=== PATIENT | female | born 1945 | race Caucasian/White ===

== ENCOUNTER 2021-08-09 09:55 | Observation (INO) ==
--- NOTE | 2021-07-06 15:58 | PAT Medication Instructions ---
Medication Instructions Date of Service July 06, 2021 Home Medications acetaminophen 500 mg capsule 500 mg PO Q6H PRN calcium carbonate 600 mg calcium (1,500 mg) tablet (Calcium) 1,200 mg PO QAM celecoxib 200 mg capsule (Celebrex) 200 mg PO BID cholecalciferol (vitamin D3) 25 mcg (1,000 unit) tablet (Vitamin D3) 25 mcg PO QAM cyclosporine 0.05 % eye drops in a dropperette (Restasis) 1 drp OPHTHALMIC (EYE) Q12H letrozole 2.5 mg tablet 2.5 mg PO QAM lisinopril 10 mg tablet 10 mg PO QAM meclizine 25 mg tablet 25 mg PO BID PRN methylphenidate HCl 54 mg tablet,extended release 24 hr (Concerta) 54 mg PO QAM omeprazole 20 mg tablet,delayed release 20 mg PO QAM sertraline 50 mg tablet 50 mg PO HS tizanidine 4 mg tablet 4 mg PO HS tolterodine 2 mg capsule,extended release 24 hr (Detrol LA) 2 mg PO QAM vitamin E mixed 1,000 unit capsule 1,000 unit PO QAM zolpidem 10 mg tablet 10 mg PO HS PRN ASK your surgeon for instructions celecoxib 200 mg capsule (Celebrex) 200 mg PO BID ASK your prescriber and surgeon letrozole 2.5 mg tablet 2.5 mg PO QAM STOP taking 2 weeks before surgery vitamin E mixed 1,000 unit capsule 1,000 unit PO QAM DO NOT take the morning of surgery calcium carbonate 600 mg calcium (1,500 mg) tablet (Calcium) 1,200 mg PO QAM cholecalciferol (vitamin D3) 25 mcg (1,000 unit) tablet (Vitamin D3) 25 mcg PO QAM lisinopril 10 mg tablet 10 mg PO QAM meclizine 25 mg tablet 25 mg PO BID PRN(if needed) methylphenidate HCl 54 mg tablet,extended release 24 hr (Concerta) 54 mg PO QAM tolterodine 2 mg capsule,extended release 24 hr (Detrol LA) 2 mg PO QAM Take morning of surgery With a small sip of water, OTHERWISE NOTHING TO EAT OR DRINK AFTER MIDNIGHT: acetaminophen 500 mg capsule 500 mg PO Q6H PRN(okay to take up to 4 hours prior to surgery if needed) cyclosporine 0.05 % eye drops in a dropperette (Restasis) 1 drp OPHTHALMIC (EYE) Q12H omeprazole 20 mg tablet,delayed release 20 mg PO QAM Take evening before surgery acetaminophen 500 mg capsule 500 mg PO Q6H PRN(if needed) cyclosporine 0.05 % eye drops in a dropperette (Restasis) 1 drp OPHTHALMIC (EYE) Q12H meclizine 25 mg tablet 25 mg PO BID PRN(if needed) sertraline 50 mg tablet 50 mg PO HS tizanidine 4 mg tablet 4 mg PO HS zolpidem 10 mg tablet 10 mg PO HS PRN(if needed) Other Notes If you have any questions please call us at [phone] or [phone] or [phone] or [phone]
--- NOTE | 2021-07-07 13:29 | Anesthesiology Consultation ---
Date of Service July 07, 2021 Assessment & Plan (1) Encounter for pre-operative examination: - COVID screening: Per assessment on 07/07: No known COVID-19 positive contacts or current COVID-19 related symptoms. Travel screen negative. Patient vaccinate d. Surgeon arranging preop COVID testing. Awaiting results. - LUE limb restriction s/p mastectomy + LND Chart Review Chart Review: Acceptable Risk for Surgery and Patient seen in Pre Admission Testing Teaching & Discussion Pre-Anesthesia Teaching/Discussion Notes: Instructed NPO after midnight before surgery,except medications with 15 cc of water. Medication instructions provided according to the PAT guidelines. History Surgery Operation Date: 08/09/21 10:30 Proposed Procedures p Right Total Knee Arthroplasty - Mark Bojorquez DO Height/Weight Height: 5 ft 8 in Weight: 112.7 kg Allergies Allergy/AdvReac Type Severity Reaction Status Date / Time No Known Allergies Allergy Verified 07/06/21 14:31 Medications Home Medications Medication Instructions Recorded Confirmed Last Taken acetaminophen 500 mg capsule 500 mg PO Q6H PRN 07/06/21 07/06/21 Unknown calcium carbonate 600 mg calcium 1,200 mg PO QAM 07/06/21 07/06/21 Unknown (1,500 mg) tablet (Calcium) celecoxib 200 mg capsule (Celebrex) 200 mg PO BID 07/06/21 07/06/21 Unknown cholecalciferol (vitamin D3) 25 25 mcg PO QAM 07/06/21 07/06/21 Unknown mcg (1,000 unit) tablet (Vitamin D3) cyclosporine 0.05 % eye drops in a 1 drp OPHTHALMIC (EYE) Q12H 07/06/21 07/06/21 Unknown dropperette (Restasis) letrozole 2.5 mg tablet 2.5 mg PO QAM 07/06/21 07/06/21 Unknown lisinopril 10 mg tablet 10 mg PO QAM 07/06/21 07/06/21 Unknown meclizine 25 mg tablet 25 mg PO BID PRN 07/06/21 07/06/21 Unknown methylphenidate HCl 54 mg 54 mg PO QAM 07/06/21 07/06/21 Unknown tablet,extended release 24 hr (Concerta) omeprazole 20 mg tablet,delayed 20 mg PO QAM 07/06/21 07/06/21 Unknown release sertraline 50 mg tablet 50 mg PO HS 07/06/21 07/06/21 Unknown tizanidine 4 mg tablet 4 mg PO HS 07/06/21 07/06/21 Unknown tolterodine 2 mg capsule,extended 2 mg PO QAM 07/06/21 07/06/21 Unknown release 24 hr (Detrol LA) vitamin E mixed 1,000 unit capsule 1,000 unit PO QAM 07/06/21 07/06/21 Unknown zolpidem 10 mg tablet 10 mg PO HS PRN 07/06/21 07/06/21 Unknown Past Medical History Medical History (Updated 07/07/21 @ 13:49 by Thea Hernandez) Anxiety Breast cancer Dx 2019 s/p b/l mastectomy LUE restriction History of COVID-19 11/2020 > incidental finding, remained asymptomatic Hypertension Obesity Exercise / Class Metabolic Activity II 4-5 Yardwork/Stairs/Walk up hill Past Surgical History Surgical History H/O esophagogastroduodenoscopy Nausea and vomiting after administration of anesthetic agent S/P colonoscopy S/P hysterectomy S/P mastectomy, bilateral S/P sinus surgery 35 YRS AGO S/P trigger finger release Past Anesthesia History No Hx of Anesthesia Complications (except PONV) and No Family Hx of Anesthesia Complications History of PONV History of PONV and Hx of Motion Sickness (+ vertigo) Social History Smoking Status: Never smoker Do You Dip or Chew Tobacco: No Hx Alcohol Use: No Hx Substance Use: No substance use type: does not use Review of Systems Patient denies chest pain, shortness of breath, dyspnea on exertion, fever, chills, cough, wheezing, palpitations. Physical Exam Vital Signs VITALS BP 120/75 P 93 TEMP 98.6 SP02 94%RA RESP 16 PHYSICAL Full cervical extension range of motion. Full TMJ range of motion. TMD 3.5 finger breaths Mallampati Score 2 Dentition: full dentures upper/lower Lungs: clear throughout to auscultation Cardiac: regular rate and rhythm, no murmurs noted Spine: normal Carotid arteries: negative bruit Extremities: no edema Lab Results Anesthesia Preop Results Results Anesthesia Widget: WBC 8.69 K/uL (4.8-10.8) 07/07/21 Hgb 13.0 g/dL (12.0-16.0) 07/07/21 Hct 39.5 % (37-47) 07/07/21 Plt 282 K/uL (130-400) 07/07/21 Na 141 mmol/L (136-145) 07/07/21 K 3.9 mmol/L (3.5-5.1) 07/07/21 Cl 106 mmol/L (98-107) 07/07/21 CO2 28 mmol/L (21-32) 07/07/21 BUN 19 mg/dl (6-23) 07/07/21 Creat 0.95 mg/dl (0.6-1.2) 07/07/21 Glucose Level 115 mg/dl (70-99(Fasting)) H 07/07/21 PT 10.7 Seconds (9.0-12.0) 07/07/21 PTT 24.7 Seconds (21.0-31.0) 07/07/21 INR 1.0 (0.9-1.1) 07/07/21 HA1c 6.0 % (4.5-5.6) H 07/07/21 Urine Color Yellow 07/07/21 Urine Appearance Clear (Clear) 07/07/21 Urine pH 5.0 (4.5-7.5) 07/07/21 Urine Specific [place] 1.021 (1.000-1.030) 07/07/21 Urine Protein Negative (Negative) 07/07/21 Urine Glucose (UA) Negative (Negative) 07/07/21 Urine Ketones Trace (Negative) H 07/07/21 Urine Blood Negative (Negative) 07/07/21 Urine Nitrite Negative (Negative) 07/07/21 Urine Bilirubin Negative (Negative) 07/07/21 Urine Urobilinogen Negative (Negative) 07/07/21 Urine Leukocyte Esterase Trace (Negative) H 07/07/21 Urine WBC (Auto) 1-5 /hpf (0-5) 07/07/21 Urine RBC (Auto) 0-4 /hpf (0-4) 07/07/21 Urine Hyaline Casts (Auto) 1-5 /lpf (0-5) 07/07/21 Urine Epithelial Cells (Auto) 20-30 /lpf (0-5) H 07/07/21 Urine Bacteria (Auto) Negative (Negative) 07/07/21 Blood Type A Positive 07/07/21 Antibody Screen NEGATIVE 07/07/21 Testing Electrocardiogram Date: 07/07/21 SR with marked sinus arrhythmia at 85bpm. Otherwise "normal" ECG. Chest X-Ray Date: 07/07/21 FINDINGS: No pneumothorax. No pleural effusions. There is a tortuous thoracic aorta. The heart is normal in size. The lungs are clear. Prior cholecystectomy. There are surgical clips within the left axilla. IMPRESSION: No acute process.
--- NOTE | 2021-07-14 08:42 | History & Physical Report ---
Date of Service July 14, 2021 date of surgery: 08/09/21 Procedure: Right Total Knee Arthroplasty Surgeon: Mark Bojorquez Assessment & Plan (1) Arthritis of right knee: Plan: Further care discussed with patient and at this point in time has failed conservative measures and would like to proceed with a right total knee replacement. Plan on discharge will be home with home health physical therapy. DVT prophylaxiswith TEDs, SCDs and will also place on aspirin 81 mg p.o. b.i.d. for a month postop. Patient will have follow up appointment in our office two weeks post op for staple/suture removal and re-evaluation. Patient otherwise has no other questions or concerns. The risks and benefits have been discussed including, but not limited to, risk of infection, nerve injury, stiffness, loss of motion, failure to improve, etc. Reasonable outcomes and options of treatment were discussed. An explanation of appropriate alternatives to the procedure that may be advantageous were discussed and their risks and benefits, as well as the risks and benefits of not proceeding with treatment. I offered to answer any additional inquiries concerning the treatment involved. All the patient's questions were answered. The patient is agreeable, understanding of the treatment plan and alternatives, and wishes to proceed with the treatment plan. History of Present Illness Chief Complaint: Right knee pain Primary Care Provider: Vamsi Gama DO Dee is a 76 year old who complains of right knee pain, presents for pre op prior to right total knee replacement. Her symptoms are reported as being moderate and occur daily. Aggravating factors include daily activities, weight bearing, walking, standing and squatting. The client states the symptoms are chronic. Patient had xrays done at [facility] and has failed Zilretta injections, RFA, and cortisone injection. Patient has tried and failed Celebrex and other NSAIDS. Allergies Allergy/AdvReac Type Severity Reaction Status Date / Time No Known Allergies Allergy Verified 07/06/21 14:31 Home Medications Medication Instructions Recorded Confirmed Type acetaminophen 500 mg capsule 500 mg PO Q6H PRN 07/06/21 07/06/21 History calcium carbonate 600 mg calcium 1,200 mg PO QAM 07/06/21 07/06/21 History (1,500 mg) tablet (Calcium) celecoxib 200 mg capsule (Celebrex) 200 mg PO BID 07/06/21 07/06/21 History cholecalciferol (vitamin D3) 25 25 mcg PO QAM 07/06/21 07/06/21 History mcg (1,000 unit) tablet (Vitamin D3) cyclosporine 0.05 % eye drops in a 1 drp OPHTHALMIC (EYE) Q12H 07/06/21 07/06/21 History dropperette (Restasis) letrozole 2.5 mg tablet 2.5 mg PO QAM 07/06/21 07/06/21 History lisinopril 10 mg tablet 10 mg PO QAM 07/06/21 07/06/21 History meclizine 25 mg tablet 25 mg PO BID PRN 07/06/21 07/06/21 History methylphenidate HCl 54 mg 54 mg PO QAM 07/06/21 07/06/21 History tablet,extended release 24 hr (Concerta) omeprazole 20 mg tablet,delayed 20 mg PO QAM 07/06/21 07/06/21 History release sertraline 50 mg tablet 50 mg PO HS 07/06/21 07/06/21 History tizanidine 4 mg tablet 4 mg PO HS 07/06/21 07/06/21 History tolterodine 2 mg capsule,extended 2 mg PO QAM 07/06/21 07/06/21 History release 24 hr (Detrol LA) vitamin E mixed 1,000 unit capsule 1,000 unit PO QAM 07/06/21 07/06/21 History zolpidem 10 mg tablet 10 mg PO HS PRN 07/06/21 07/06/21 History Past Med/Surg History Medical History Anxiety Breast cancer Dx 2019 s/p b/l mastectomy LUE restriction History of COVID-19 11/2020 > incidental finding, remained asymptomatic Hypertension Obesity Surgical History H/O esophagogastroduodenoscopy Nausea and vomiting after administration of anesthetic agent S/P colonoscopy S/P hysterectomy S/P mastectomy, bilateral S/P sinus surgery 35 YRS AGO S/P trigger finger release Social History Smoking Status: Never smoker Second Hand Exposure: No; Hx Alcohol Use: No Hx Substance Use: No Preferred Language: Congolese Communication Ability: Effective Electorate Officer Required: No Beliefs That Will Affect Care: None Current Living Situation: Spouse Feels Safe at Home: Yes Assistive Devices: Denture - Upper, Denture - Lower and Glasses Review of Systems Review of Systems: All systems reviewed & are unremarkable except as noted in HPI & below Constitutional: no fever, no chills and no sweats Respiratory: no cough and no dyspnea Cardiovascular: no chest pain, no dyspnea and no orthopnea Gastrointestinal: no abdominal pain, no nausea and no vomiting Musculoskeletal: as per Subjective / HPI Physical Exam Physical Exam: HT: 5ft 8in WT: 112.7kg Constitutional: WD/WN, vitals as above no acute distress Respiratory: normal respiratory effort, lungs clear to auscultation no r espiratory distress, no labored breathing and does not use accessory muscles Cardiovascular: RRR, no murmur, no edema Gastrointestinal (Abdomen): normal bowel sounds, soft, nontender, no hepatosplenomegaly Musculoskeletal: Knee: + knee abnormal to inspection (Right Knee- ), + effusion (+1 effusion), + limited ROM of knee (ROM 0/3/110), + knee ROM with crepitation, + joint line tenderness (medial joint line) and + Nas's sign positive; no deformity, no skin erythema, no ecchymosis, no valgus laxity, no varus laxity, anterior drawer test negative, Caleb's sign negative and pivot shift test negative Results & Data Results & Data ([facility]) Diagnostic Findings Right Knee X-ray: Right knee series showing advanced degenerative changes to the right knee, narrowing of the medial compartment and patello-femoral joint with patellar spurring noted, findings showing joint space narrowing of the medial compartment and patello-femoral joint, osteophyte formation and subchondral sclerosis noted. overall varus alignment. no acute bony pathology noted.
[~2021-08-09 09:55] MED LIST: ACETAMINOPHEN 500 MG TAB PO SCH; BUPIVACAINE 0.25% 30 ML VIAL ONE; BUPIVACAINE 0.5 % 5 MG/1 ML PF 10ML VIAL ONE; CeleBREX 200 MG CAP PO SCH; DEXAMETHASONE SOD INJ 4 MG/ML VIAL ONE; EPINEPHrine INJ 1 MG/ML AMP ONE; FAMOTIDINE 20 MG TAB PO SCH; GABAPENTIN 300 MG CAP PO SCH; LR 500ML BOLUS, THEN 15ML/HR IV SCH; METOCLOPRAMIDE HCL 10 MG TABLET PO SCH; ROPIVACAINE 0.5% HCL/PF 150 MG, BUPIVACAINE 0.75% MPF 20 ML, EPINEPHrine 30MG/30ML (OR ... INSTIL SCH; TRANEXAMIC ACID 1,000 MG **IV Intra-op IV SCH; TRANEXAMIC ACID 1,000 MG **IV Pre-op IV SCH; ceFAZolin 2000MG 2,000 MG/15 ML SYR IV SCH; dexAMETHasone 4 MG TAB PO SCH
--- NOTE | 2021-08-09 11:14 | History & Physical Bridge Note ---
Date of Service August 09, 2021 History & Physical Bridge Note I have examined the patient, reviewed the History & Physical and in the interval since the performance of the History & Physical I have noted the following changes of clinical significance: no changes noted
[2021-08-09] MEDS ORDERED: MIDAZOLAM HCL 1 MG/ML 2ML VIAL ONE (11:52)
[2021-08-09] MEDS ORDERED: fentaNYL citrate 100 MCG/2 ML VIAL ONE (11:53)
[2021-08-09] MEDS ORDERED: ORTHO JOINT ANESTHETIC ONE (13:52)
[2021-08-09] MEDS ORDERED: ONDANSETRON INJ 2 MG/ML 2 ML VIAL ONE (14:06)
[2021-08-09] MEDS ORDERED: PROPOFOL IV EMULSION 10 MG/ML 20 ML VIAL IV ONE (14:06)
--- NOTE | 2021-08-09 15:07 | Operative Report ---
Post Operative Report Pre & Post Diagnosis Operation Date: 08/09/21 12:50 Pre-Op Diagnosis: Osteoarthritis Knee Right Post-Op Diagnosis: Osteoarthritis Knee Right I identified the patient and participated in the time-out.: Yes Procedure Operation Date: 08/09/21 12:50 Actual Procedures p Right Total Knee Arthroplasty(Right) utilizing [email or web address] journey 2 patient matched total knee arthroplasty size femur 6 tibia 5 polytwelve patella 32 oval Mark Bojorquez DO Surgeon Mark Bojorquez DO Client Service Manager Rayshawn HERRERA Estimated Blood Loss 5 Findings Consistent with Post-Op Diagnosis Patient presents with severe end-stage tricompartmental degenerative joint disease right knee no response to conservative management patient has eburnated [id number] marginal osteophyte subchondral cystic changes subchondral sclerosis Specimens Bone and cartilage Drains Medium bore Hemovac Anesthesia Type MAC Spinal Regional Complications none Disposition Accompanied Patient To Recovery: No Disposition: Recovery Room Indications Patient presents with severe end-stage DJD right knee after failed attempted conservative management clinic physical therapy anti-inflammatories relative rest activity modification corticosteroid injection viscosupplementation Description of Procedure After proper prepping and draping of the Right lower extremity anterior midline incision was made over the region of the extensor extensor mechanism after meticulous hemostasis was obtained and maintained in subcutaneous tissues a medial parapatellar incision was made The patella was subluxed lateralward the medial lateral gutter were cleaned from any hypertrophic synovitis and scar tissue of the distal femoral block was placed and the distal femoral osteotomy cut was made subsequently the chamfers anterior and posterior osteotomy cuts were made utilizing the 4-in-1 block the tibia was subsequently subluxed anteriorward medial and ateral meniscal remnants were excised in their entirety remnants of the anterior and posterior cruciate ligaments were excised in their entirety excellent exposure of the proximal tibia was obtained the tibial osteotomy guide was placed on the proximal tibial osteotomy cut was made once again the knee was irrigated with copious amounts of sterile saline solution the patella was subsequently everted lateralward thickened scar tissue around the patella was removed the patella was subsequently cut utilizing a freehand technique and was drilled prepared for final preparation and placement of patella socially flexion-extension gaps were checked and the equal and symmetric trials were placed to the appropriate femoral and tibial trials with poly-spacer being placed for equal flexion and extension gaps and full range of motion including extension to 0 and flexion to 140 the trial components after having been taken to recovery range of motion was subsequently removed meticulous hemostasis was obtained and maintained subsequently a knee block injection of joint cocktail including ropivacaine 0.5% 150 mg. Bupivacaine 0.5% epinephrine 1-200,030 mL's toradol 30 mg dexamethasone 4 mg ketamine 10 mg clonidine 100 micrograms normal saline solution 30 mg was infiltrated into the soft tissues of the posterior knee medial lateral gutters and periosteal synovium special attention was paid to protect neurovascular structures at all times subsequently trial components having been removed the knee was irrigated with sterile saline solution. debris was removed the proximal tibia was subsequently prepared and was made ready for the placement of the tibial component tibial component was also cemented and tamped into position the femoral component was subsequently placed and cemented in the position the patellar component was subsequently cemented in position because hemostasis once again obtained and maintained wound having been thoroughly irrigated with debridement and debridement lavage was performed as well as a medial parapatellar incision closed with #1 Vicryl in interrupted fashion subcutaneous was closed with #2 Vicryl skin was closed with skin clips. PA-C was necessary for prepping and drapping as well as wound closure of deep fascia Sub cutaneous tissue and skin and was necessary for the case. A sterile compressive dressing was placed patient was taken to recovery in stable condition of report dictated by [place] I attest to the content of the Intraoperative Record and any orders documented therein. Any exceptions are noted below.Due to the complex nature of the procedure, the entire surgery was performed with the operational assistance of Rayshawn HERRERA. The assistant restaurant general manager, under direct supervision, was involved in the actual performance of all aspects of the surgical procedure including hemostasis, tissue retraction and incision, instrument management, patient positioning, and wound closure. I attest to the content of the Intraoperative Record and any orders documented therein. Any exceptions are noted below.
[2021-08-09] MEDS ORDERED: ATROPINE SULFATE 0.1 MG/ML 10ML SYR IV PRN (15:33)
[2021-08-09] MEDS ORDERED: ONDANSETRON INJ 2 MG/ML 2 ML VIAL IV PRN ×2 (15:33→17:12)
[2021-08-09] MEDS ORDERED: fentaNYL citrate 100 MCG/2 ML VIAL IV PRN (15:33)
[2021-08-09] MEDS ORDERED: ePHEDrine sulfate 50 MG/ML AMP IV PRN (15:33)
--- NOTE | 2021-08-09 16:59 | XRay Report ---
XR knee RT 1 or 2V routine HISTORY: 76 years-old Female Surgical Post Op right knee total joint arthroplasty COMPARISON: None TECHNIQUE: 2 views of the right knee FINDINGS: Total joint arthroplasty with patellar resurfacing. Anterior midline skin conrad are noted along wit h expected postoperative soft tissue swelling and deep tissue air with surgical drainage catheter. No acute fracture or unexpected opaque foreign body. IMPRESSION: Total joint arthroplasty with expected postoperative changes. ACT 112: Negative or not required by law. The above report was generated using voice recognition software. It may contain grammatical, syntax o r spelling errors. Electronically signed by: Urbano Holt M.D. 08/09/2021 4:58 PM
[2021-08-09] MEDS ORDERED: NALOXONE HCL 0.4 MG/1 ML VIAL/CARP IV PRN (17:12)
[2021-08-09] MEDS ORDERED: MAGNESIUM HYDROXIDE SUSP 30 ML UDC PO PRN (17:12)
[2021-08-09] MEDS ORDERED: HYDROmorphone INJ 0.5 MG/0.5 ML SYR IV PRN (17:12)
[2021-08-09] MEDS ORDERED: ZOLPIDEM TARTRATE 10 MG TAB PO PRN (17:12)
[2021-08-09] MEDS ORDERED: bisacodyL 10 MG SUPP PR PRN (17:12)
[2021-08-09] MEDS ORDERED: MECLIZINE HCL 25 MG TAB PO PRN (17:12)
[2021-08-09] MEDS: SODIUM CHLORIDE 0.9% 1000ML 1,000 ML IV SCH (17:45)
--- NOTE | 2021-08-09 18:15 | Anesthesiology Progress Note ---
Date of Service August 09, 2021 Anesthesia Post Procedure Vital Signs Vital Signs: Temp Pulse Pulse Resp BP Pulse Ox 08/09/21 18:04 36.9 C 79 16 135/69 92 08/09/21 17:15 36.7 C 73 18 146/70 H 93 08/09/21 16:45 77 20 140/72 97 08/09/21 16:30 72 16 145/81 H 96 08/09/21 16:20 36.9 C 75 18 148/85 H 95 08/09/21 16:10 78 19 141/68 H 96 08/09/21 16:00 75 18 154/68 H 96 08/09/21 15:52 36.7 C 82 18 143/66 H 95 08/09/21 10:34 36.8 C 90 20 117/98 94 Pain Intensity Right Knee: Pain Intensity: 3 Transfer of Care Handoff Completed per policy Notes Mental Status: alert / awake / arousable Patient Amnestic to Procedure: Yes Nausea / Vomiting: adequately controlled Pain: adequately controlled Airway Patency, RR, SpO2: stable & adequate BP & HR: stable & adequate Hydration State: stable & adequate Neuraxial Anesthesia: was administered and sensory block is resolving Anesthetic Complications: no major complications apparent and Pt Satisfied with anesthetic care
[2021-08-09] MEDS: oxyCODONE HCL IR 5 MG TAB (IMMEDIATE RELEASE) PO PRN (18:28)
[2021-08-09] MEDS: ASPIRIN 81 MG ECTAB PO SCH (20:53)
[2021-08-09] MEDS: CeleBREX 200 MG CAP PO SCH (20:53)
[2021-08-09] MEDS: DOCUSATE SODIUM 100 MG CAP PO SCH (20:54)
[2021-08-09] MEDS ORDERED: tiZANidine HCL 4 MG TABLET PO SCH (21:00)
[2021-08-09] MEDS ORDERED: SENNA 8.6 MG TAB PO SCH (21:00)
[2021-08-09] MEDS ORDERED: SERTRALINE HCL 50 MG TABLET PO SCH (21:00)
[2021-08-09] MEDS: ACETAMINOPHEN 500 MG TAB PO SCH (21:53)
[2021-08-09] MEDS: ceFAZolin 2000MG 2,000 MG/15 ML SYR IV SCH (21:54)
[2021-08-10] MEDS: SODIUM CHLORIDE 0.9% 1000ML 1,000 ML IV SCH (03:18)
[2021-08-10] MEDS: oxyCODONE HCL IR 5 MG TAB (IMMEDIATE RELEASE) PO PRN ×3 (03:40→13:00)
[2021-08-10] MEDS: ceFAZolin 2000MG 2,000 MG/15 ML SYR IV SCH (05:37)
[2021-08-10] MEDS: ACETAMINOPHEN 500 MG TAB PO SCH (05:41)
[2021-08-10 06:39] LABS: Hematocrit (blood only) 34.9 % (37-47); Hemoglobin 11.4 g/dL (12.0-16.0); Mean Corpuscular Hemoglobin 29.5 pg (25-34); Mean Corpuscular Hgb Conc 32.7 g/dL (32-36); Mean Corpuscular Volume 90.2 fL (80-100); Mean Platelet Volume 10.5 fL (7.4-10.4); Platelet Count 247 K/uL (130-400); RDW Coefficient of Variation 13.1 % (11.5-14.5); RDW Standard Deviation 42.8 fL (36.4-46.3); Red Blood Count 3.87 M/uL (4.2-5.4); White Blood Count 14.99 K/uL (4.8-10.8)
[2021-08-10 07:09] LABS: BUN Creatinine Ratio 21.8 (10-20); Calcium 8.3 mg/dl (8.5-10.1); Creatinine Clr Calc Pharmacy 63.2 ml/min; Est GFR (African American) 63.1 ml/min; Est GFR (Non-African American) 54.4 ml/min; Potassium 4.2 mmol/L (3.5-5.1)
[2021-08-10] MEDS: CeleBREX 200 MG CAP PO SCH (07:10)
[2021-08-10] MEDS: ASPIRIN 81 MG ECTAB PO SCH (07:10)
[2021-08-10] MEDS: DOCUSATE SODIUM 100 MG CAP PO SCH (07:11)
--- NOTE | 2021-08-10 08:34 | Orthopedic Progress Note ---
Date of Service August 10, 2021 Assessment & Plan (1) Arthritis of right knee: Plan: Postop day 1 status post right total knee arthroplasty. Resolving foot drop likely secondary from intraoperative injection. Watch for now. PT/OT protocols. Weightbearing as tolerated. DVT prophylaxis-aspirin p.o. twice daily, SCDs, CONSUELO brown. Pain management as written. DC planning-patient is hoping for home health services upon discharge. We will recheck her later today to see how she is progressing. Possible discharge to home today. Admission and Anticipated Discharge Date Admission Date: August 09, 2021 Subjective Postop day 1 Patient lying in bed awake and alert. Pain appears controlled. She states that her operative foot feels weak. We discussed that it was likely secondary to her nerve blocks and injections done at the time of surgery. No other complaints at this time. Denies shortness of breath, chest pain, lightheadedness. Physical Exam Physical Exam: Dressings are clean, dry, and intact. Calves are soft and nontender. She has some mild numbness on the top of her foot. She is able to dorsiflex the foot at this time and her great toe but is on the weaker side compared to the left. She has good plantar flexion. Toes are mobile. VAC drainage was 100 mL from the previous shift. Results & Data ([facility]) Vital Signs (Past 12 Hours) Vital Signs Temp Pulse Resp BP Pulse Ox 08/10/21 07:02 36.8 C 69 16 122/76 94 08/10/21 03:35 36.6 C 66 18 111/69 96 08/09/21 23:08 36.6 C 71 18 105/63 96 Laboratory Results Laboratory Results WBC 14.99 K/uL (4.8-10.8) H 08/10/21 06:16 RBC 3.87 M/uL (4.2-5.4) L 08/10/21 06:16 Hgb 11.4 g/dL (12.0-16.0) L 08/10/21 06:16 Hct 34.9 % (37-47) L 08/10/21 06:16 MCV 90.2 fL (80-100) 08/10/21 06:16 MCH 29.5 pg (25-34) 08/10/21 06:16 MCHC 32.7 g/dL (32-36) 08/10/21 06:16 RDW Std Deviation 42.8 fL (36.4-46.3) 08/10/21 06:16 RDW Coeff of Kirsten 13.1 % (11.5-14.5) 08/10/21 06:16 Plt Count 247 K/uL (130-400) 08/10/21 06:16 MPV 10.5 fL (7.4-10.4) H 08/10/21 06:16 Sodium 138 mmol/L (136-145) 08/10/21 06:16 Potassium 4.2 mmol/L (3.5-5.1) 08/10/21 06:16 Chloride 108 mmol/L (98-107) H 08/10/21 06:16 Carbon Dioxide 24 mmol/L (21-32) 08/10/21 06:16 Anion Gap 6 (3-11) 08/10/21 06:16 BUN 22 mg/dl (6-23) 08/10/21 06:16 Creatinine 1.01 mg/dl (0.6-1.2) 08/10/21 06:16 Est Cr Clr Drug Dosing 63.2 ml/min 08/10/21 06:16 Est GFR ( Amer) 63.1 ml/min 08/10/21 06:16 Est GFR (Non-Af Amer) 54.4 ml/min 08/10/21 06:16 BUN/Creatinine Ratio 21.8 (10-20) H 08/10/21 06:16 Glucose 154 mg/dl (70-99(Fasting)) H 08/10/21 06:16 Calcium 8.3 mg/dl (8.5-10.1) L 08/10/21 06:16 SARS-CoV-2, RNA, NAAT NEGATIVE (NEGATIVE) 08/09/21 10:16 Impressions Knee X-Ray 08/09/21 16:06 XR knee RT 1 or 2V routine HISTORY: 76 years-old Female Surgical Post Op right knee total joint art hroplasty COMPARISON: None TECHNIQUE: 2 views of the right knee FINDINGS: Total joint arthroplasty with patellar resurfacing. Anterior midline skin conrad are noted along with expected postoperative soft tissue swelling and deep tissue air with surgical drainage catheter. No acute fracture or unexpected opaque foreign body. IMPRESSION: Total joint arthroplasty with expected postoperative changes. ACT 112: Negative or not required by law. The above report was generated using voice recognition software. It may contain grammatical, syntax or spelling errors. Electronically signed by: Urbano Holt M.D. 08/09/2021 4:58 PM
[2021-08-10] MEDS ORDERED: TOLTERODINE TARTRATE LA 2 MG CAPCR PO SCH (09:00)
[2021-08-10] MEDS ORDERED: MULTIVITAMIN TAB PO SCH (09:00)
[2021-08-10] MEDS ORDERED: CALCIUM CARBONATE 1250MG TAB PO SCH (09:00)
[2021-08-10] MEDS ORDERED: LETROZOLE 2.5 MG TAB PO SCH (09:00)
[2021-08-10] MEDS ORDERED: PANTOprazole 40 MG TAB PO SCH (09:00)
[2021-08-10] MEDS ORDERED: CHOLECALCIFEROL 1,000 UNITS 25 MCG TAB PO SCH (09:00)
[2021-08-10] MEDS ORDERED: lisinopril 10 MG TAB PO SCH (09:00)
--- NOTE | 2021-08-15 10:14 | Discharge Summary ---
Date of Service August 15, 2021 Admission HPI Per Admitting Provider Maci is a 76 year old who complains of right knee pain, presents for pre op prior to right total knee replacement. Her symptoms are reported as being moderate and occur daily. Aggravating factors include daily activities, weight bearing, walking, standing and squatting. The client states the symptoms are chronic. Patient had xrays done at [facility] and has failed Zilretta injections, RFA, and cortisone injection. Patient has tried and failed Celebrex and other NSAIDS. Admission Exam Per Admitting Provider Physical Exam: HT: 5ft 8in WT: 112.7kg Constitutional: WD/WN, vitals as above no acute distress Respiratory: normal respiratory effort, lungs clear to auscultation no respiratory distress, no labored breathing and does not use accessory muscles Cardiovascular: RRR, no murmur, no edema Gastrointestinal (Abdomen): normal bowel sounds, soft, nontender, no hepatosplenomegaly Musculoskeletal: Knee: + knee abnormal to inspection (Right Knee- ), + effusion (+1 effusion), + limited ROM of knee (ROM 0/3/110), + knee ROM with crepitation, + joint line tenderness (medial joint line) and + Nas's sign positive; no deformity, no skin erythema, no ecchymosis, no valgus laxity, no varus laxity, anterior drawer test negative, Caleb's sign negative and pivot shift test negative Principal Diagnosis Right Knee Osteoarthritis Discharge Data Allergies Allergy/AdvReac Type Severity Reaction Status Date / Time benzocaine Allergy Intermediate cold sore Verified 08/09/21 10:30 [From Campho-Phenique] breakout camphor Allergy Intermediate cold sore Verified 08/09/21 10:30 [From Campho-Phenique] breakout menthol Allergy Intermediate cold sore Verified 08/09/21 10:30 [From Campho-Phenique] breakout petrolatum,white Allergy Intermediate cold sore Verified 08/09/21 10:30 [From Campho-Phenique] breakout phenol [From Campho-Phenique] Allergy Intermediate cold sore Verified 08/09/21 10:30 breakout phenol liquid Allergy Intermediate cold sore Verified 08/09/21 10:30 [From Campho-Phenique] breakout pramoxine Allergy Intermediate cold sore Verified 08/09/21 10:30 [From [facility]] breakout Procedures Performed Operation Date: 08/09/21 12:50 Actual Procedures p Right Total Knee Arthroplasty(Right) - Mark Bojorquez DO Ordered Studies 08/09/21 05:00 US - OR guided needle placemen Routine Hospital Course (1) Arthritis of right knee: [facility], [id number] Orthopedic Progress Note Signed Patient:MACI SEGOVIA Admit Date:08/09/21 MR#:[id number] Att Phy:Mark Bojorquez D.O. Acct ID:[id number] Joselin Phy:Vamsi Gama DO Date:1945 Fam Phy: Age:76 Location: Sex:F Room/Bed:E304-1 cc: ~ *NOTICE TO RECEIVING GREEN PARTY/AGENCY This information is strictly Confidential and protected under [place] law. [place] law prohibits you from making any further disclosure of this information unless further disclosure is expressly permitted by the written consent of the person to whom it pertains or is authorized by law. A general authorization for the release of medical or other information is not sufficient for this purpose. Hospital accepts no responsibility if the information is made available to any other person, INCLUDING THE PATIENT. Date of Service August 10, 2021 Assessment & Plan (1) Arthritis of right knee: Plan: Postop day 1 status post right total knee arthroplasty. Resolving foot drop likely secondary from intraoperative injection. Watch for now. PT/OT protocols. Weightbearing as tolerated. DVT prophylaxis-aspirin p.o. twice daily, SCDs, CONSUELO brown. Pain management as written. DC planning-patient is hoping for home health services upon discharge. We will recheck her later today to see how she is progressing. Possible discharge to home today. Admission and Anticipated Discharge Date Admission Date: August 09, 2021 Subjective Postop day 1 Patient lying in bed awake and alert. Pain appears controlled. She states that her operative foot feels weak. We discussed that it was likely secondary to her nerve blocks and injections done at the time of surgery. No other complaints at this time. Denies shortness of breath, chest pain, lightheadedness. Physical Exam Physical Exam: Dressings are clean, dry, and intact. Calves are soft and nontender. She has some mild numbness on the top of her foot. She is able to dorsiflex the foot at this time and her great toe but is on the weaker side compared to the left. She has good plantar flexion. Toes are mobile. VAC drainage was 100 mL from the previous shift. Results & Data ([facility]) Vital Signs (Past 12 Hours) Vital Signs Temp Pulse Resp BP Pulse Ox 08/10/21 07:02 36.8 C 69 16 122/76 94 08/10/21 03:35 36.6 C 66 18 111/69 96 08/09/21 23:08 36.6 C 71 18 105/63 96 Laboratory Results Laboratory Results WBC 14.99 K/uL (4.8-10.8) H 08/10/21 06:16 RBC 3.87 M/uL (4.2-5.4) L 08/10/21 06:16 Hgb 11.4 g/dL (12.0-16.0) L 08/10/21 06:16 Hct 34.9 % (37-47) L 08/10/21 06:16 MCV 90.2 fL (80-100) 08/10/21 06:16 MCH 29.5 pg (25-34) 08/10/21 06:16 MCHC 32.7 g/dL (32-36) 08/10/21 06:16 RDW Std Deviation 42.8 fL (36.4-46.3) 08/10/21 06:16 RDW Coeff of Kirsten 13.1 % (11.5-14.5) 08/10/21 06:16 Plt Count 247 K/uL (130-400) 08/10/21 06:16 MPV 10.5 fL (7.4-10.4) H 08/10/21 06:16 Sodium 138 mmol/L (136-145) 08/10/21 06:16 Potassium 4.2 mmol/L (3.5-5.1) 08/10/21 06:16 Chloride 108 mmol/L (98-107) H 08/10/21 06:16 Carbon Dioxide 24 mmol/L (21-32) 08/10/21 06:16 Anion Gap 6 (3-11) 08/10/21 06:16 BUN 22 mg/dl (6-23) 08/10/21 06:16 Creatinine 1.01 mg/dl (0.6-1.2) 08/10/21 06:16 Est Cr Clr Drug Dosing 63.2 ml/min 08/10/21 06:16 Est GFR ( Amer) 63.1 ml/min 08/10/21 06:16 Est GFR (Non-Af Amer) 54.4 ml/min 08/10/21 06:16 BUN/Creatinine Ratio 21.8 (10-20) H 08/10/21 06:16 Glucose 154 mg/dl (70-99(Fasting)) H 08/10/21 06:16 Calcium 8.3 mg/dl (8.5-10.1) L 08/10/21 06:16 SARS-CoV-2, RNA, NAAT NEGATIVE (NEGATIVE) 08/09/21 10:16 Impressions Knee X-Ray 08/09/21 16:06 XR knee RT 1 or 2V routine HISTORY: 76 years-old Female Surgical Post Op right knee total joint arthroplasty COMPARISON: None TECHNIQUE: 2 views of the right knee FINDINGS: Total joint arthroplasty with patellar resurfacing. Anterior midline skin conrad are noted along with expected postoperative soft tissue swelling and deep tissue air with surgical drainage catheter. No acute fracture or unexpected opaque foreign body. IMPRESSION: Total joint arthroplasty with expected postoperative changes. Total Time Total Time Spent Total Time Spent (In Minutes): 10 Discharge Plan Discharge Items Patient Disposition: Home - Home Health Services Reason For Visit: Osteoarthritis Knee Right Discharge Diagnosis: Osteoarthritis Right Knee Activity: Per Instructions section Weightbearing: Right weightbearing Weightbearing Comment: as tolerated Non-emergency contact: Surgeon Call non-emergency contact if: your pain is not controlled, your temperature is above 101.5, your wound has increased redness and your wound has increased drainage Follow-up/Referrals: Mark Bojorquez DO [Surgeon] - (Please follow up with Dr Bojorquez or his PA Tony Chatterjee in 2 weeks for your first postoperative visit. Please call for appointment if one has not been made for you. ) Vamsi Gama DO [Primary Care Provider] - Diet: Regular Addtl Attending Provider Instructions: ACTIVITY RECOMMENDATIONS: SELF CARE INSTRUCTIONS AFTER TOTAL KNEE REPLACEMENT A. You may need to continue a physical therapy program after discharge from the hospital. There are several options available to you. Your doctor will assist you in selecting the best one for you. 1. An out-patient facility 2 to 3 times a week for therapy or home therapy. 2. Continue working on all exercises taught to you in the hospital. Your goals should be to increase bending of your knee to 90 degrees and beyond and to fully straighten your knee. B. You may progress at your own pace from walking with a walker or crutches to a cane; then to no assistive devices. C. Make walking a part of your daily routine. Be up as much as comfortable with rest periods throughout the day. Rest with leg elevation is very important. Use the ice wrap frequently for the first 3-4 weeks. D. There are no restrictions on activities. You may ride in a car, shop, participate in bead inspector and all social activities. E. Wear the long elastic stockings (CONSUELO hose) 20 hours a day for 2 weeks after surgery. They can be removed several times a day for laundering and for a bath. F. You may shower, no tub baths until cleared by your doctor. SPECIAL CARE INSTRUCTIONS: VERY IMPORTANT TO READ AND REVIEW A. There are a few signs you need to watch for after you are home. Call [facility] if you notice any of the followin. Increased severe knee pain. Some pain is expected especially when you exercise. 2. Increased swelling in your leg or knee; pain or swelling of the calf muscle in either lower leg. 3. Any fluid drainage from the incision. 4. Shortness of breath or chest pain. B. Please call [facility] at if you have any concerns or questions about your operation or recovery. The doctor or his nurse will return your call promptly. C. You must take antibiotics before dental work, bladder, bowel or other surgery. Your doctor will provide you with a permanent care to carry describing this precaution. IMPORTANT: * REMEMBER TO TAKE ASPIRIN, 81 MG, TWICE DAILY FOR 4 WEEKS UNLESS OTHERWISE DIRECTED. THIS IS YOUR BLOOD THINNER. * HIGH RISK PATIENTS MAY BE PRESCRIBED A STRONGER BLOOD THINNER. THIS WILL BE PROVIDED AT DISCHARGE. * CALL IF INCREASED PAIN, REDNESS, DRAINAGE OR FEVER GREATER THAT 101. * WEAR CONSUELO HOSE 20 HOURS PER DAY FOR 2 WEEKS. * NADINE Dressing - This is a large suction dressing covering your incision. This will help pull any excess drainage from the wound and allow your incision to heal properly. You may shower with this if you can keep the unit outside of the shower. If any bleeding or leakage is noted please call your doctor's office. This will remain on your incision for 7 days and then should be removed. This can be done yourself or by the home nursing staff if applicable. The entire unit is disposable once removed. Once removed, keep incision clean and dry. If redness or drainage is noted, please call your surgeon. . AFTER YOUR NADINE DRESSING HAS BEEN REMOVED, PLEASE FOLLOW WOUND CARE INSTRUCTIONS BELOW. *DERMABOND Prineo- This is a mesh tape dressing that is covered with glue. It should remain in place until the incision is properly healed, usually 10-14 days. This dressing is designed to naturally slough off. You may trim the excess mesh tape as it peels off. Incision may be briefly wet in a shower. Dry immediately by blotting with a clean, dry towel. Do not bath or swim until instructed by your doctor. Do not scratch, rub, or pick at the dressing. Do not apply any topical ointments or lotions until dressing is completely removed and/or instructed by your doctor. There may be a small piece of suture material at one end of your incision. Do not pull or trim this. If it is bothersome or catching on clothing, you may cover it with a band-aid. FOLLOW UP VISIT: If appointment is not already scheduled: Please call [facility] to make a follow-up appointment for 2 weeks after your surgery at . Stand-Alone Forms: My [facility] [employer], Smoking Cessation Medications and DC Order Prescriptions: New aspirin 81 mg Tablet,Delayed Release (Dr/Ec) 81 mg PO BID 30 Days Qty: 60 RF: 0 acetaminophen [Tylenol Extra Strength] 500 mg Tablet 1,000 mg PO Q8 14 Days Qty: 84 RF: 0 polyethylene glycol 3350 [Miralax] 17 gram powder in packet 17 g PO DAILY PRN (Reason: constipation) Qty: 5 RF: 0 cefadroxil 500 mg capsule 500 mg PO BID Qty: 28 RF: 1 oxycodone 5 mg Tablet 5 mg PO Q4H MDD 6 PRN (Reason: pain) Qty: 30 RF: 0 Continued celecoxib [Celebrex] 200 mg Capsule 200 mg PO BID RF: 0 tolterodine [Detrol LA] 2 mg Capsule,Extended Release 24hr 2 mg PO QAM RF: 0 tizanidine 4 mg Tablet 4 mg PO HS RF: 0 calcium carbonate [Calcium 600] 600 mg calcium (1,500 mg) Tablet 1,200 mg PO QAM RF: 0 meclizine 25 mg Tablet 25 mg PO BID PRN (Reason: Vertigo) RF: 0 lisinopril 10 mg Tablet 10 mg PO QAM RF: 0 letrozole 2.5 mg Tablet 2.5 mg PO QAM RF: 0 zolpidem 10 mg Tablet 10 mg PO HS PRN (Reason: Sleep) RF: 0 sertraline 50 mg Tablet 50 mg PO HS RF: 0 cyclosporine [Restasis] 0.05 % Dropperette 1 drp OPHTHALMIC (EYE) Q12H RF: 0 cholecalciferol (vitamin D3) [Vitamin D3] 25 mcg (1,000 unit) Tablet 25 mcg PO QAM RF: 0 omeprazole 20 mg Tablet,Delayed Release (Dr/Ec) 20 mg PO QAM RF: 0 vitamin E mixed 1,000 unit Capsule 1,000 unit PO QAM RF: 0 methylphenidate HCl [Concerta] 54 mg Tablet Extended Release 24hr 54 mg PO QAM RF: 0 Discontinued acetaminophen [Tylenol Extra Strength] 500 mg Capsule 500 mg PO Q6H PRN (Reason: Pain) RF: 0 Discharge Orders: Discharge Order (Routine); Ordered 08/10/21 Ordered By: Rayshawn Pettit Admission Data Admit Date/Time: 08/09/21 16:06 Attending Provider: Mark Bojorquez Admit Provider: Mark Bojorquez Primary Care Provider: Vamsi Gama. Other Interventions: Discharge Summary Assessment (RN) Last Done: 08/10/21 11:58
== END 2021-08-10 13:13 | disposition home health service (06) ==
LOC: 3E 09:55 → ASU 09:55